=== PATIENT | male | born 1950 | race Caucasian/White ===

== ENCOUNTER → 2017-01-23 | Outpatient (CLI) | payer OTHER ==
--- NOTE | 2017-01-23 23:18 | MR ---
EXAMINATION TYPE: MR lumbar spine wo con DATE OF EXAM: 01/23/2017 COMPARISON: 01/06/2016 HISTORY: Back pain TECHNIQUE: Multiplanar, multisequence images of the lumbar spine were acquired. Vertebra have fairly normal alignment. There is narrowing and decreased signal in the disks throughou t the lumbar spine. There is mild to moderate posterior disc herniation at L5-S1 into the spinal blas l. There is developmentally adequate canal and no significant spinal stenosis. There is hypertrophic facet arthropathy with bilateral neural foraminal stenosis present from L3 to S1. This is more severe at L5-S1. There is no compression fracture. Sacroiliac joints are intact. There is no lumbar paraspi nal mass. I see no focal bone destruction. There is small posterior disc bulging at L1-2 L3-4 without impingement on the spinal canal. Sacroiliac joints appear normal. IMPRESSION: Mild posterior L5-S1 disc herniation without change compared to last exam. No spinal stenosis. Mild m ultilevel spondylosis. No fracture. Multilevel neural foraminal stenosis due to facet arthropathy and disc space narrowing. This is simil ar to old exam. No evidence of any significant spinal stenosis.
== END ==
LOC: RADMRIMAIN 16:02
PROVIDERS: ATTEND Family Medicine
DX: M48.06 Spinal stenosis, lumbar region (principal); M99.73 Connective tissue and disc stenosis of intervertebral foramina of lumbar region; M51.27 Other intervertebral disc displacement, lumbosacral region; M47.816 Spondylosis without myelopathy or radiculopathy, lumbar region; M46.86 Other specified inflammatory spondylopathies, lumbar region
CPT/HCPCS: 72148

== ENCOUNTER → 2017-07-05 | Outpatient (CLI) | payer MEDICARE ==
--- NOTE | 2017-07-05 17:22 | MR ---
EXAMINATION TYPE: MR lumbar spine wo/w con DATE OF EXAM: 07/05/2017 COMPARISON: 01/23/2017 HISTORY: spondylosis with myelopathy, lumbar CONTRAST: 9 mL intravenous Gadavist. TECHNIQUE: Multiplanar, multisequence images of the lumbar spine were acquired. FINDINGS: Cord terminates at the L1 level. Large cysts present on the inferior medial left kidney. L5-S1: There is increased signal on T2-weighted sequences within the posterior disc space at L5-S1 co mpatible with a small annular tear. Right paracentral disc bulge has moderate anterior thecal sac com pression. Granulation tissue is present through the right laminectomy. Granulation tissue or disc bul ging into the right foramen is contributing to severe right foraminal stenosis. L4-L5: Mild disc bulge has mild anterior thecal sac compression. No AP spinal canal stenosis present. Foraminal stenosis is present to a moderate degree bilaterally. Facet hypertrophy ligamentum flavum laxity is present. L3-L4: Minimal disc bulge has anterior thecal sac contact. No spinal canal stenosis is present. Facet hypertrophy is present. Mild posterior lateral thecal sac compression is present. L2-L3: No significant disc bulge or disc herniation. No spinal canal stenosis. No foraminal stenosi s. Neural foramen are patent.. L1-L2: No significant disc bulge or disc herniation. No spinal canal stenosis. No foraminal stenosi s. Neural foramen are patent.. T12-L1: No significant disc bulge or disc herniation. No spinal canal stenosis. No foraminal stenos is. Neural foramen are patent.. No abnormal enhancement. Postsurgical changes are in the interval finding from 01/17/2017. Severe righ t foraminal stenosis remains present. IMPRESSION: 1. Right hemilaminectomy with granulation tissue. This extends to and may displace the right S1 nerve root. Severe right foraminal stenosis is present. Correlate with radicular symptoms. 2. Annular tear L5-S1 with right paracentral disc bulge. 3. Mild disc bulging L4-5 and minimal disc bulge at L3-4.
== END | disposition home or self-care (01) ==
LOC: RADMRIMAIN 12:08
PROVIDERS: ATTEND Family Medicine
DX: M99.73 Connective tissue and disc stenosis of intervertebral foramina of lumbar region (principal); M51.27 Other intervertebral disc displacement, lumbosacral region; M51.37 Other intervertebral disc degeneration, lumbosacral region
CPT/HCPCS: 82565; 72158; 36415; A9581

== ENCOUNTER → 2019-09-09 | Outpatient (CLI) | payer MEDICARE, OTHER ==
--- NOTE | 2019-09-12 10:47 | MR ---
MR left hip HISTORY: Left hip pain Multiplanar multisequence imaging obtained through the pelvis with small [id number] images through the left hip Correlation to plain film dated 06/17/2019 Some marginal spurring is present within the femoral head. There is abnormal increased signal involvi ng the acetabular labrum, coronal image #13 small [id number] images. Abnormal increased signal is present along the distribution of the gluteus minimus tendon, some increased intrinsic signal is pres ent on coronal image #10. No zofia tear is evident. There is no sizable joint effusion. Subchondral g eode formation suspected on sagittal image #25 of the small [id number] images, coronal image #10 w ith focal increased signal seen on T2-weighted sequences. There is some mild chondromalacia present, grade 2 suspected. There is no free fluid within the pelvis. Prostate is mildly enlarged. Paraspinal musculature superfi cial to the sacrum on the right shows mild increased signal in T1 and T2-weighted sequences, there ma y be some muscle atrophy. No pelvic adenopathy. IMPRESSION: Gluteus medius tendon shows probable partial tear, tendinosis or strain. Osteoarthritis. Small labral tear is suggested on this noncontrast exam.
== END | disposition home or self-care (01) ==
LOC: RADMRIMAIN 11:35
PROVIDERS: ATTEND Family Medicine
DX: M16.12 Unilateral primary osteoarthritis, left hip (principal)

== ENCOUNTER 2019-11-04 02:21 | Emergency (ER) | payer MEDICARE, OTHER ==
[2019-11-04 02:30] VITALS: RESP 18; TEMP 98.4
[2019-11-04] MEDS ORDERED: SODIUM CHLORIDE 0.9% 500 ML 500 ML IV STA (02:42)
--- NOTE | 2019-11-04 02:48 | ED ---
Weakness HPI - General Chief complaint: Weakness Stated complaint: weakness Time Seen by Provider: 11/04/19 02:34 Source: patient, EMS Mode of arrival: EMS Limitations: no limitations - History of Present Illness Initial comments: This patient is a 69-year-old man who presents to be evaluated after he developed an episode of generalized weakness and diaphoresis. The patient states that he had been in her usual state of health until just after midnight. He states that at that time he felt like he had to have a bowel movement. He thought that he had eaten something that may not agree with him. He states that as she was in the process of having bowel movement he became very sweaty, felt shaky and weak. He states that he then went and sat on the bed and then symptoms worsen then he went to lie on the floor. EMS was called and they found that his blood pressure was low. The patient denied having chest pain, palpitations, diaphoresis, abdominal pain, though there was some bilateral lower abdominal cramping. He did not note any blood or dark tarry stool. No vomiting. The patient states that the symptoms have nearly entirely resolved. He is still having some intermittent lower abdominal cramping. MD Complaint: generalized weakness Onset/Timin -: hour(s) Location: generalized Consistency: now resolved Improves with: none Worsens with: none Associated Symptoms: diaphoresis - Related Data Allergies Allergy/AdvReac Type Severity Reaction Status Date / Time No Known Allergies Allergy Verified 11/04/19 02:30 Review of Systems ROS Statement: Those systems with pertinent positive or pertinent negative responses have been documented in the HPI. ROS Other: All systems not noted in ROS Statement are negative. Constitutional: Reports: chills, weakness. Denies: fever Respiratory: Denies: cough, dyspnea Cardiovascular: Denies: chest pain, palpitations, orthopnea, edema, syncope Gastrointestinal: Reports: as per HPI, diarrhea. Denies: abdominal pain, nausea, vomiting, constipation, melena, hematochezia Genitourinary: Denies: dysuria, hematuria Musculoskeletal: Denies: back pain Skin: Denies: rash Neurological: Denies: headache, weakness, numbness Past Medical History Past Medical History: Chest Pain / Angina, Hypertension History of Any Multi-Drug Resistant Organisms: None Reported Past Surgical History: Coronary Bypass/CABG, Heart Catheterization With Stent Additional Past Surgical History / Comment(s): 5 bypass in 2013, back surgery Past Psychological History: No Psychological Hx Reported Smoking Status: Never smoker Past Alcohol Use History: None Reported Past Drug Use History: None Reported General Exam Limitations: no limitations General appearance: alert, in no apparent distress Head exam: Present: atraumatic, normocephalic Eye exam: Present: normal appearance. Absent: scleral icterus, conjunctival injection Neck exam: Present: normal inspection Respiratory exam: Present: normal lung sounds bilaterally. Absent: respiratory distress, wheezes, rales, rhonchi, stridor Cardiovascular Exam: Present: regular rate, normal rhythm, normal heart sounds. Absent: systolic murmur, diastolic murmur, rubs, gallop GI/Abdominal exam: Present: soft. Absent: distended, tenderness, guarding, rebound, rigid, mass, pulsatile mass, hernia Extremities exam: Present: normal inspection, normal capillary refill. Absent: pedal edema, calf tenderness Back exam: Present: normal inspection. Absent: CVA tenderness (R), CVA tenderness (L) Neurological exam: Present: alert Skin exam: Present: warm, dry, intact, normal color. Absent: rash Course Vital Signs 11/04/19 11/04/19 02:22 04:16 Temperature 98.4 F Pulse Rate 79 70 Respiratory 18 18 Rate Blood Pressure 137/73 121/79 O2 Sat by Pulse 98 98 Oximetry EKG Findings - EKG Results: EKG: interpreted by ERMD, sinus rhythm, normal axis, normal QRS - Blocks, [place], Hypertrophy, ST Abn: AV and intraventricular conduction: 1 AV block Repolarization changes or abnormalities: nonspecific abnormality, ST segment, and/or T wave Medical Decision Making - Medical Decision Making This patient is 69-year-old man presenting with what sounds like a near syncopal episode associated with a bowel movement this morning. Given his cardiac history did recommend that the patient stay for telemetry monitoring and serial cardiac enzymes. Discussed the possibility of transient arrhythmia amongst other etiologies. The patient states that all of his symptoms have resolved. He would like to go home. He understands there is risk of missing serious etiology by leaving now. He states he'll return immediately should any symptoms recur or new symptoms develop. - Lab Data Result diagrams: 11/04/19 02:36 11/04/19 02:36 Lab Results 11/04/19 11/04/19 11/04/19 Range/Units 02:36 02:36 02:36 WBC 8.8 (3.8-10.6) k/uL RBC 4.23 L (4.30-5.90) m/uL Hgb 11.8 L (13.0-17.5) gm/dL Hct 34.9 L (39.0-53.0) % MCV 82.5 (80.0-100.0) fL MCH 27.8 (25.0-35.0) pg MCHC 33.7 (31.0-37.0) g/dL RDW 13.5 (11.5-15.5) % Plt Count 211 (150-450) k/uL Neutrophils % 58 % Lymphocytes % 30 % Monocytes % 6 % Eosinophils % 2 % Basophils % 1 % Neutrophils # 5.1 (1.3-7.7) k/uL Lymphocytes # 2.7 (1.0-4.8) k/uL Monocytes # 0.5 (0-1.0) k/uL Eosinophils # 0.2 (0-0.7) k/uL Basophils # 0.1 (0-0.2) k/uL PT 10.3 (9.0-12.0) sec INR 1.0 (<1.2) APTT 23.2 (22.0-30.0) sec Sodium 133 L (137-145) mmol/L Potassium 3.8 (3.5-5.1) mmol/L Chloride 100 (98-107) mmol/L Carbon Dioxide 22 (22-30) mmol/L Anion Gap 11 mmol/L BUN 22 H (9-20) mg/dL Creatinine 0.94 (0.66-1.25) mg/dL Est GFR (CKD-EPI)AfAm >90 (>60 ml/min/1.73 sqM) Est GFR (CKD-EPI)NonAf 84 (>60 ml/min/1.73 sqM) Glucose 112 H (74-99) mg/dL Plasma Lactic Acid [place] (0.7-2.0) mmol/L Calcium 8.9 (8.4-10.2) mg/dL Total Bilirubin 0.4 (0.2-1.3) mg/dL AST 27 (17-59) U/L ALT 20 (4-49) U/L Alkaline Phosphatase 44 (38-126) U/L Troponin I (0.000-0.034) ng/mL Total Protein 6.8 (6.3-8.2) g/dL Albumin 4.1 (3.5-5.0) g/dL 11/04/19 11/04/19 Range/Units 02:36 02:36 WBC (3.8-10.6) k/uL RBC (4.30-5.90) m/uL Hgb (13.0-17.5) gm/dL Hct (39.0-53.0) % MCV (80.0-100.0) fL MCH (25.0-35.0) pg MCHC (31.0-37.0) g/dL RDW (11.5-15.5) % Plt Count (150-450) k/uL Neutrophils % % Lymphocytes % % Monocytes % % Eosinophils % % Basophils % % Neutrophils # (1.3-7.7) k/uL Lymphocytes # (1.0-4.8) k/uL Monocytes # (0-1.0) k/uL Eosinophils # (0-0.7) k/uL Basophils # (0-0.2) k/uL PT (9.0-12.0) sec INR (<1.2) APTT (22.0-30.0) sec Sodium (137-145) mmol/L Potassium (3.5-5.1) mmol/L Chloride (98-107) mmol/L Carbon Dioxide (22-30) mmol/L Anion Gap mmol/L BUN (9-20) mg/dL Creatinine (0.66-1.25) mg/dL Est GFR (CKD-EPI)AfAm (>60 ml/min/1.73 sqM) Est GFR (CKD-EPI)NonAf (>60 ml/min/1.73 sqM) Glucose (74-99) mg/dL Plasma Lactic Acid [place] 1.7 (0.7-2.0) mmol/L Calcium (8.4-10.2) mg/dL Total Bilirubin (0.2-1.3) mg/dL AST (17-59) U/L ALT (4-49) U/L Alkaline Phosphatase (38-126) U/L Troponin I <0.012 (0.000-0.034) ng/mL Total Protein (6.3-8.2) g/dL Albumin (3.5-5.0) g/dL Disposition Clinical Impression: Near syncope Disposition: HOME SELF-CARE Condition: Undetermined Is patient prescribed a controlled substance at d/c from ED?: No Referrals: Ag Pritchett MD [Primary Care Provider] - 1-2 days
[2019-11-04 03:02] LABS: Basophils # (A) 0.1 k/uL (0-0.2); Basophils % (A) 1 %; Eosinophils # (A) 0.2 k/uL (0-0.7); Eosinophils % (A) 2 %; HCT 34.9 % (39.0-53.0); HGB 11.8 gm/dL (13.0-17.5); Lymphocytes # (A) 2.7 k/uL (1.0-4.8); Lymphocytes % (A) 30 %; MCH 27.8 pg (25.0-35.0); MCHC 33.7 g/dL (31.0-37.0); MCV 82.5 fL (80.0-100.0); Mean Platelet Volume 7.2; Monocytes # (A) 0.5 k/uL (0-1.0); Monocytes % (A) 6 %; Neutrophils # (A) 5.1 k/uL (1.3-7.7); Neutrophils % (A) 58 %; Platelet Count 211 k/uL (150-450); RBC 4.23 m/uL (4.30-5.90); RDW 13.5 % (11.5-15.5); WBC 8.8 k/uL (3.8-10.6)
--- NOTE | 2019-11-04 03:04 | XR ---
EXAMINATION TYPE: XR chest 1V portable DATE OF EXAM: 11/04/2019 COMPARISON: 05/06/2013 HISTORY: Diaphoresis TECHNIQUE: FINDINGS: There is no heart failure nor confluent pneumonic infiltrate. There are sternal wires. Ther e are chest leads. Costophrenic angles are clear. IMPRESSION: No active cardiopulmonary disease. There is clearing of the infiltrate and atelectasis in both lower lobes compared to old exam.
[2019-11-04 03:06] LABS: Partial Thromboplastin Time 23.2 sec (22.0-30.0); Prothrombin Time 10.3 sec (9.0-12.0)
[2019-11-04 03:11] LABS: ALT 20 U/L (4-49); AST 27 U/L (17-59); African American GFR (CKD) >90 (>60 ml/min/1.73 sqM); Albumin 4.1 g/dL (3.5-5.0); Alkaline Phosphatase 44 U/L (38-126); Anion Gap 11 mmol/L; Blood Urea Nitrogen 22 mg/dL (9-20); Calcium 8.9 mg/dL (8.4-10.2); Carbon Dioxide 22 mmol/L (22-30); Chloride 100 mmol/L (98-107); Glucose 112 mg/dL (74-99); Non-African American GFR(CKD) 84 (>60 ml/min/1.73 sqM); Potassium 3.8 mmol/L (3.5-5.1); Sodium 133 mmol/L (137-145); Total Bilirubin 0.4 mg/dL (0.2-1.3); Total Protein 6.8 g/dL (6.3-8.2)
[2019-11-04 04:18] VITALS: BP 121/79; PULSE 70
== END 2019-11-04 04:49 | disposition home or self-care (01) ==
LOC: EC 02:21
DX: R55 Syncope and collapse (principal); R53.1 Weakness; R10.30 Lower abdominal pain, unspecified; Z95.5 Presence of coronary angioplasty implant and graft; Z95.1 Presence of aortocoronary bypass graft
CPT/HCPCS: 36415; 71045; 80053; 83605; 84484; 85025; 85610; 85730; 93005; 96360; 99285

== ENCOUNTER → 2020-01-02 | Outpatient (CLI) | payer MEDICARE, OTHER | END | disposition home or self-care (01) | LOC: RADMRIMAIN 13:21 | PROVIDERS: ATTEND Orthopaedic Surgery | DX: Z53.9 Procedure and treatment not carried out, unspecified reason (principal) ==

== ENCOUNTER → 2020-01-09 | Outpatient (CLI) | payer MEDICARE, OTHER ==
--- NOTE | 2020-01-10 03:04 | MR ---
EXAMINATION TYPE: MR shoulder RT wo con DATE OF EXAM: 01/09/2020 COMPARISON: None HISTORY: Right shoulder pain Multiplanar multiecho imaging of the right shoulder was performed without contrast. There is fluid around the biceps tendon. Subscapularis tendon is intact. The glenoid ekaterina appear int act. There is hypertrophic moderate spurring at the AC joint with impingement on the supraspinatus tendon. The supraspinatus tendon appears intact. There is no retraction. The humeral head is intact. I see n o bony destructive process. IMPRESSION: No evidence of rotator cuff tear. There is significant hypertrophic spur formation at the AC joint wi th resultant impingement on the supraspinatus tendon and muscle.
== END | disposition home or self-care (01) ==
LOC: RADMRIMAIN 18:39
PROVIDERS: ATTEND Orthopaedic Surgery
DX: M25.711 Osteophyte, right shoulder (principal)

== ENCOUNTER → 2020-02-18 | Outpatient (CLI) | payer MEDICARE, OTHER ==
[2020-02-18 11:25] LABS: Basophils # (A) 0.1 k/uL (0-0.2); Basophils % (A) 1 %; Eosinophils # (A) 0.2 k/uL (0-0.7); Eosinophils % (A) 2 %; HCT 37.9 % (39.0-53.0); Hypochromasia Slight; Lymphocytes # (A) 2.3 k/uL (1.0-4.8); Lymphocytes % (A) 31 %; MCH 26.2 pg (25.0-35.0); MCHC 31.6 g/dL (31.0-37.0); MCV 82.9 fL (80.0-100.0); Mean Platelet Volume 7.1; Monocytes # (A) 0.5 k/uL (0-1.0); Monocytes % (A) 6 %; Neutrophils # (A) 4.4 k/uL (1.3-7.7); Neutrophils % (A) 58 %; Platelet Count 233 k/uL (150-450); RBC 4.58 m/uL (4.30-5.90); RDW 14.6 % (11.5-15.5); WBC 7.6 k/uL (3.8-10.6)
[2020-02-18 11:32] LABS: Potassium 4.5 mmol/L (3.5-5.1)
== END | disposition home or self-care (01) ==
LOC: LABPAT 09:58
PROVIDERS: ATTEND Orthopaedic Surgery
DX: Z01.812 Encounter for preprocedural laboratory examination (principal); M75.41 Impingement syndrome of right shoulder
CPT/HCPCS: 36415; 80051; 85025; 93005

== ENCOUNTER 2020-03-11 07:17 | Day surgery (SDC) | payer MEDICARE, OTHER ==
[2020-03-09 16:01] VITALS: BMI 29.2
--- NOTE | 2020-03-10 15:17 | HP ---
HISTORY AND PHYSICAL DATE OF SURGERY: 03/11/2020 Tony Yo is a 69-year-old patient seen with progressive right shoulder pain. We discussed options for treatment. He elected to proceed with arthroscopy. Consent regarding the procedure was obtained. PAST MEDICAL HISTORY: Hyperlipidemia, hypertension, cardiovascular disease. PAST SURGICAL HISTORY: Left knee arthroscopy, cardiac catheterization, cardiac bypass surgery. DAILY MEDICATIONS: Aspirin, Lipitor, lisinopril. ALLERGIES: None. SOCIAL HISTORY: Denies current tobacco use. PHYSICAL EVALUATION OF THE RIGHT SHOULDER: Flexion is 130, abduction is 120, external rotation is 45. Tenderness along the anterolateral acromion rotator cuff insertion site. Impingement sign is positive at 90 degrees. Drop-arm sign is positive. Distal neurovascular exam is intact. RADIOGRAPHS: Right shoulder type 2 anterior acromion, severe acromioclavicular osteoarthritis with change of tuberosity. Right shoulder MRI, impingement with acromioclavicular osteoarthritis. IMPRESSION: 1. Right shoulder impingement with possible rotator cuff tear. 2. Right shoulder acromioclavicular joint osteoarthritis. 3. Hypertension. 4. Hyperlipidemia. PLAN: Right shoulder arthroscopy, subacromial decompression, arthroscopic rotator cuff repair, Tegan procedure and debridement. MMODL / IJN: [id number] /
[~2020-03-11 07:17] MED LIST: DEXAMETHASONE SOD PHOSPHATE 4 MG/ML 1 ML VIAL IV ONE; LACTATED RINGERS 1,000 ML IV SCH; ONDANSETRON 4 MG/2 ML VIAL IVP ONE
[2020-03-11] MEDS: MIDAZOLAM 2 MG/2 ML VIAL IV PRN ×2 (07:55→11:13)
[2020-03-11] MEDS ORDERED: fentaNYL (PF) 50 MCG/ML 2 ML AMP IVP ONE (07:57)
--- NOTE | 2020-03-11 08:14 | P.ANPRN ---
Procedure Note - Anesthesia - Nerve Block Performed Right Interscalene Single Time Out Performed: Yes Date of Procedure: 03/11/20 Procedure Start Time: 07:55 Procedure Stop Time: 08:05 Location of Patient: PreOp Indication: Requested by Surgeon Specifically requested for management of pain by DrHeather: Oleg Roper Sedation Type: Sedate with meaningful contact maintained Preparation: Sterile Prep Position: Supine Needle Types: Pajunk Needle Gauge: 20 Ultrasound used to visualize needle placement: Yes Ultrasound used to observe medication spread: Yes Injectate: 0.5% Ropivacaine (see comment for volume) (25 ml plus dexamethason) Blood Aspirated: No Pain Paresthesia on Injection Noted: No Resistance on Injection: Normal Image Stored and Saved: Yes Events: Uneventful and Well Tolerated (dexamethason 4 mg added to ropivacaine 0.5 % 25 ml)
[2020-03-11] MEDS ORDERED: fentaNYL (PF) 50 MCG/ML 2 ML AMP ONE (09:09)
[2020-03-11] MEDS ORDERED: MIDAZOLAM 2 MG/2 ML VIAL ONE (09:09)
[2020-03-11] MEDS ORDERED: ROPIVACAINE 5 MG/ML 30 ML VIAL ONE (09:09)
[2020-03-11] MEDS ORDERED: LIDOCAINE 1% INJ 10MG/ML (20 ML MDV) ONE (09:09)
[2020-03-11] MEDS ORDERED: PROPOFOL 10 MG/ML 20 ML VIAL IV ONE (09:09)
[2020-03-11] MEDS ORDERED: SUCCINYLCHOLINE CHLORIDE 100 MG/5 ML SYR IV ONE (09:09)
[2020-03-11] MEDS: HYDROmorphone 0.5 MG/0.5 ML SYRINGE IVP PRN ×4 (10:38→10:55)
[2020-03-11 10:45] VITALS: RESP 16; TEMP 97
--- NOTE | 2020-03-11 10:45 | P.OP ---
Date of Procedure: 03/11/20 Preoperative Diagnosis: Right shoulder impingement Postoperative Diagnosis: 1. Right shoulder rotator cuff tear 2. Right shoulder impingement 3. Right shoulder acromioclavicular joint osteoarthritis 4. Right shoulder partial long head biceps tendon tear 5. 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 Right shoulder arthroscopic rotator cuff repair 2. Right shoulder arthroscopic subacromial decompression 3. Right shoulder arthroscopic Tegan procedure 4. Right shoulder arthroscopic biceps tenotomy 5. Right shoulder arthroscopic chondroplasty humeral head Implants: 14.75 Arthrex swivel lock anchor Anesthesia: GETA, regional (Interscalene block) Surgeon: Oleg Roper [employer] #1: Brent Bradshaw Estimated Blood Loss (ml): 8 Pathology: none sent Condition: stable Disposition: PACU Indications for Procedure: 69-year-old gentleman seen with progressive right shoulder pain. After treatment options were discussed, he elected to proceed with arthroscopy. Operative Findings: See description of procedure Description of Procedure: Patient underwent an interscalene block by department of anesthesia. The patient was then taken to the operative suite. The patient underwent a general anesthetic by the department of anesthesia. The patient was placed into a lateral position and secured. There was appropriate padding of the bony prominence. Right shoulder was then prepped and draped in normal sterile orthopedic fashion. We placed the extremity in 10 pounds of longitudinal traction. A posterior incision was now made for a posterior working portal site. The trocar and cannula were inserted into the glenohumeral joint. Arthroscopy was initiated. Spinal needle was now inserted anteriorly, to ascertain the a nterior working portal site. An incision was now made in that area, a trocar was inserted followed by a probe. There was area of grade 4 chondromalacia measuring about 1.5 centimeters central portion humeral head with some peripheral osteochondral tears present. There was some partial tearing and hyperemia long head biceps tendon. The labrum was probed and found to be stable. I performed an arthroscopic biceps tenotomy. I performed a chondroplasty of the humeral head. I reintroduced the probe and probe the labrum, it was stable. Instruments now removed from the glenohumeral joint. Utilizing the posterior working portal site, the trocar and cannula were inserted into the subacromial space. Arthroscopy initiated. I made an incision 2 fingerbreadths lateral to the acromion. I introduced my trocar followed by my ArthroCare ablator. I now began ablating thick subacromial bursal tissue, which exposed the undersurface of the anterior acromion. There was diminished subacromial space. There was a very prominent anterior acromion. A motorized bur was introduced and a subacromial decompression was performed. I also excised some osteophytes off the inferior aspect of the distal clavicle. The AC joint was visualized and noted to be fairly arthritic. The motorized bur was introduced in the anterior portal site and a Tegan procedure was performed without difficulty, decompressing the AC joint nicely. I turned my attention to the rotator cuff. There was a 11.5 cm rotator cuff tear. I debrided the margins getting down to stable tendon tissue. I abraded the footprint with a mo torized bur. I passed 2 everted mattress sutures through good bites of rotator cuff tendon. I punched a hole in area the footprint for insertion of anchor. I passed all 4 limbs of suture through the eyelet of a 4.75 swivel lock anchor. I introduced the eyelet into my pre-punch hole. Martín GRANGER tensioned all 4 limbs of suture and deployed the anchor with good fixation noted. All residual suture limbs were now clipped. We had good compression of the tendon along the entire footprint. I injected 1 mL Renyte intra-articular. Instruments now removed from the portal sites. All portal sites were approximated with nylon suture. Sterile dressings were applied followed by a shoulder sling. Brent GRANGER assisted in this complex case. The patient was awakened, transferred to a bed, and taken to recovery in stable condition.
[2020-03-11] MEDS ORDERED: KETOROLAC 15 MG/ML 1 ML VIAL IVP ONE (10:50)
[2020-03-11] MEDS ORDERED: SODIUM CHLORIDE 0.9% 1,000 ML IV ONE (11:25)
[2020-03-11 11:51] VITALS: BP 122/69; PULSE 74
== END 2020-03-11 12:30 | disposition home or self-care (01) ==
LOC: OR 07:17
PROVIDERS: ATTEND Orthopaedic Surgery
DX: M75.101 Unspecified rotator cuff tear or rupture of right shoulder, not specified as traumatic (principal); M25.811 Other specified joint disorders, right shoulder; M19.011 Primary osteoarthritis, right shoulder; M66.821 Spontaneous rupture of other tendons, right upper arm; M94.211 Chondromalacia, right shoulder; M25.711 Osteophyte, right shoulder; M25.511 Pain in right shoulder; E78.5 Hyperlipidemia, unspecified; I25.10 Atherosclerotic heart disease of native coronary artery without angina pectoris; I11.9 Hypertensive heart disease without heart failure; Z95.1 Presence of aortocoronary bypass graft; Z98.890 Other specified postprocedural states; Z79.82 Long term (current) use of aspirin; Z79.899 Other long term (current) drug therapy
CPT/HCPCS: 64415; 76942; 29826; 29827; 29824; C1713; Q4212; J2250; J1100; J0690; J2405; J2001; J3010; J2795; J1885; J0330; J2704; J1170

== ENCOUNTER → 2021-07-01 | Outpatient (CLI) | payer MEDICARE, OTHER | END | disposition home or self-care (01) | LOC: LABWHC1 09:26 | PROVIDERS: ATTEND Otolaryngology Otolaryngology/Facial Plastic Surgery | DX: H61.002 Unspecified perichondritis of left external ear (principal) | CPT/HCPCS: 36415; 85652; 86038; 86141 ==

== ENCOUNTER 2021-08-14 21:57 | Emergency (ER) | payer MEDICARE, OTHER ==
[2021-08-14 23:44] VITALS: TEMP 98
[2021-08-15] MEDS ORDERED: MORPHINE SULFATE 4 MG/ML SYRINGE IVP STA ×2 (00:08→01:27)
[2021-08-15 00:27] LABS: Basophils # (A) 0.1 k/uL (0-0.2); Basophils % (A) 1 %; Eosinophils # (A) 0.2 k/uL (0-0.7); Eosinophils % (A) 2 %; HCT 39.5 % (39.0-53.0); HGB 13.3 gm/dL (13.0-17.5); Lymphocytes # (A) 3.4 k/uL (1.0-4.8); Lymphocytes % (A) 42 %; MCH 28.5 pg (25.0-35.0); MCHC 33.7 g/dL (31.0-37.0); MCV 84.6 fL (80.0-100.0); Mean Platelet Volume 7.3; Monocytes # (A) 0.5 k/uL (0-1.0); Monocytes % (A) 7 %; Neutrophils # (A) 3.7 k/uL (1.3-7.7); Neutrophils % (A) 45 %; Platelet Count 235 k/uL (150-450); RBC 4.67 m/uL (4.30-5.90); RDW 14.5 % (11.5-15.5); WBC 8.2 k/uL (3.8-10.6)
[2021-08-15 00:46] LABS: Potassium 3.8 mmol/L (3.5-5.1)
[2021-08-15 00:47] LABS: ALT 34 U/L (4-49); AST 36 U/L (17-59); African American GFR (CKD) >90 (>60 ml/min/1.73 sqM); Albumin 4.4 g/dL (3.5-5.0); Alkaline Phosphatase 47 U/L (38-126); Amylase 65 U/L (30-110); Anion Gap 10 mmol/L; Blood Urea Nitrogen 19 mg/dL (9-20); Calcium 8.6 mg/dL (8.4-10.2); Carbon Dioxide 25 mmol/L (22-30); Chloride 104 mmol/L (98-107); Glucose 104 mg/dL (74-99); Magnesium 2.1 mg/dL (1.6-2.3); Non-African American GFR(CKD) >90 (>60 ml/min/1.73 sqM); Sodium 139 mmol/L (137-145); Total Bilirubin 0.6 mg/dL (0.2-1.3); Total Protein 7.5 g/dL (6.3-8.2)
[2021-08-15 00:58] LABS: Partial Thromboplastin Time 25.5 sec (22.0-30.0); Prothrombin Time 10.5 sec (9.0-12.0)
[2021-08-15 01:22] VITALS: RESP 16
--- NOTE | 2021-08-15 01:31 | ED ---
General Adult HPI - General Chief complaint: Neck Pain/Injury Stated complaint: Oral pain Source: patient Mode of arrival: ambulatory - History of Present Illness Initial comments: 71-year-old male presents emergency room with reported left maxillary and left mandibular jaw pain that radiates into his left neck. Patient states that he has dealt with the pain for an extended period of time. He was seen by ENT and diagnosed with an ear infection. He was placed on antibiotics and an antibiotic cream. States that his pain improved. Around 2 PM today the patient began having recurrence of his pain. States that the areas are very tender to touch. Patient has pain with opening and closing his jaw. He denies any fevers. No palpable masses. He does have a significant cardiac history however denies any chest pain or shortness of breath. Denies any dental pain. No nasal congestion. Denies any hearing changes. No other alleviating, precipitating or modifying factors - Related Data Home Medications Medication Instructions Recorded Confirmed Aspirin [Adult Low Dose Aspirin EC] 81 mg PO DAILY 03/09/20 03/09/20 Atorvastatin [Lipitor] 40 mg PO HS 03/09/20 03/09/20 Lisinopril-Hctz 20-25 mg 1 tab PO DAILY 03/09/20 03/11/20 [Zestoretic 20-25] lisinopriL 20 mg PO HS 03/09/20 03/09/20 Previous Rx's Medication Instructions Recorded Hydrocodone/Acetaminophen [[place] 1 each PO Q6HR PRN #28 tab 03/11/20 5-325] HYDROcodone/APAP 7.5-325MG [[place] 1 tab PO Q4HR PRN 3 Days #18 tab 08/15/21 7.5-325] Allergies Allergy/AdvReac Type Severity Reaction Status Date / Time No Known Allergies Allergy Verified 08/14/21 23:44 Review of Systems ROS Statement: Those systems with pertinent positive or pertinent negative responses have been documented in the HPI. ROS Other: All systems not noted in ROS Statement are negative. Past Medical History Past Medical History: Chest Pain / Angina, Hypertension, Myocardial Infarction ([place]) History of Any Multi-Drug Resistant Organisms: None Reported Past Surgical History: Coronary Bypass/CABG, Heart Catheterization With Stent Additional Past Surgical History / Comment(s): 5 bypass in 2013, back surgery Past Psychological History: No Psychological Hx Reported Smoking Status: Never smoker Past Alcohol Use History: None Reported Past Drug Use History: None Reported Course Vital Signs 08/14/21 08/15/21 08/15/21 23:39 00:44 01:20 Temperature 98 F Pulse Rate 77 80 68 Respiratory 19 18 16 Rate Blood Pressure 124/70 141/80 104/81 O2 Sat by Pulse 96 93 L 93 L Oximetry 08/15/21 01:42 Temperature Pulse Rate 74 Respiratory 16 Rate Blood Pressure 130/80 O2 Sat by Pulse 93 L Oximetry EKG Findings - EKG Comments: EKG Findings:: EKG demonstrates sinus rhythm with a rate of 73. CT interval 18 5. QRS 89. QTC of 423. No acute ST segment elevations or depressions Medical Decision Making - Medical Decision Making Upon arrival patient was placed in room 3. A thorough history and physical exam was performed. Cardiac workup is performed due to the patient's history. Results are discussed patient. He was given morphine for pain control and does have improvement in his symptoms. I discussed diagnosis, treatment options. Recommend admission for continued cardiac workup however the patient refused as he states the duration of his symptoms has been extended. Patient will like to follow up his primary care physician and ENT. He is instructed to return for any new or worsening symptoms. Patient was discharged home in stable condition - Lab Data Result diagrams: 08/15/21 00:00 08/15/21 00:00 Lab Results 08/15/21 08/15/21 08/15/21 Range/Units 00:00 00:00 00:00 WBC 8.2 (3.8-10.6) k/uL RBC 4.67 (4.30-5.90) m/uL Hgb 13.3 (13.0-17.5) gm/dL Hct 39.5 (39.0-53.0) % MCV 84.6 (80.0-100.0) fL MCH 28.5 (25.0-35.0) pg MCHC 33.7 (31.0-37.0) g/dL RDW 14.5 (11.5-15.5) % Plt Count 235 (150-450) k/uL MPV 7.3 Neutrophils % 45 % Lymphocytes % 42 % Monocytes % 7 % Eosinophils % 2 % Basophils % 1 % Neutrophils # 3.7 (1.3-7.7) k/uL Lymphocytes # 3.4 (1.0-4.8) k/uL Monocytes # 0.5 (0-1.0) k/uL Eosinophils # 0.2 (0-0.7) k/uL Basophils # 0.1 (0-0.2) k/uL PT (9.0-12.0) sec INR (<1.2) APTT (22.0-30.0) sec Sodium 139 (137-145) mmol/L Potassium 3.8 (3.5-5.1) mmol/L Chloride 104 (98-107) mmol/L Carbon Dioxide 25 (22-30) mmol/L Anion Gap 10 mmol/L BUN 19 (9-20) mg/dL Creatinine 0.78 (0.66-1.25) mg/dL Est GFR (CKD-EPI)AfAm >90 (>60 ml/min/1.73 sqM) Est GFR (CKD-EPI)NonAf >90 (>60 ml/min/1.73 sqM) Glucose 104 H (74-99) mg/dL Calcium 8.6 (8.4-10.2) mg/dL Magnesium 2.1 (1.6-2.3) mg/dL Total Bilirubin 0.6 (0.2-1.3) mg/dL AST 36 (17-59) U/L ALT 34 (4-49) U/L Alkaline Phosphatase 47 (38-126) U/L Troponin I <0.012 (0.000-0.034) ng/mL Total Protein 7.5 (6.3-8.2) g/dL Albumin 4.4 (3.5-5.0) g/dL Amylase 65 (30-110) U/L 08/15/21 Range/Units 00:42 WBC (3.8-10.6) k/uL RBC (4.30-5.90) m/uL Hgb (13.0-17.5) gm/dL Hct (39.0-53.0) % MCV (80.0-100.0) fL MCH (25.0-35.0) pg MCHC (31.0-37.0) g/dL RDW (11.5-15.5) % Plt Count (150-450) k/uL MPV Neutrophils % % Lymphocytes % % Monocytes % % Eosinophils % % Basophils % % Neutrophils # (1.3-7.7) k/uL Lymphocytes # (1.0-4.8) k/uL Monocytes # (0-1.0) k/uL Eosinophils # (0-0.7) k/uL Basophils # (0-0.2) k/uL PT 10.5 (9.0-12.0) sec INR 1.0 (<1.2) APTT 25.5 (22.0-30.0) sec Sodium (137-145) mmol/L Potassium (3.5-5.1) mmol/L Chloride (98-107) mmol/L Carbon Dioxide (22-30) mmol/L Anion Gap mmol/L BUN (9-20) mg/dL Creatinine (0.66-1.25) mg/dL Est GFR (CKD-EPI)AfAm (>60 ml/min/1.73 sqM) Est GFR (CKD-EPI)NonAf (>60 ml/min/1.73 sqM) Glucose (74-99) mg/dL Calcium (8.4-10.2) mg/dL Magnesium (1.6-2.3) mg/dL Total Bilirubin (0.2-1.3) mg/dL AST (17-59) U/L ALT (4-49) U/L Alkaline Phosphatase (38-126) U/L Troponin I (0.000-0.034) ng/mL Total Protein (6.3-8.2) g/dL Albumin (3.5-5.0) g/dL Amylase (30-110) U/L Disposition Clinical Impression: Jaw pain Disposition: HOME SELF-CARE Condition: Stable Instructions (If sedation given, give patient instructions): Atypical Facial Pain (ED) Additional Instructions: Please follow-up with your primary care doctor in 2-4 days. Return for any new or worsening symptoms Prescriptions: HYDROcodone/APAP 7.5-325MG [[place] 7.5-325] 1 tab PO Q4HR PRN 3 Days #18 tab PRN Reason: Pain Is patient prescribed a controlled substance at d/c from ED?: Yes When asked, does pt state using other controlled substances?: No If prescribed controlled substance>3 days was MAPS reviewed?: Prescribed <3 Days Referrals: Ag Pritchett MD [Primary Care Provider] - 1-2 days Time of Disposition: 01:31
[2021-08-15 01:47] VITALS: BP 130/80; PULSE 74
== END 2021-08-15 01:55 | disposition home or self-care (01) ==
LOC: EC 21:57
DX: R68.84 Jaw pain (principal); I10 Essential (primary) hypertension; I25.2 Old myocardial infarction; Z95.1 Presence of aortocoronary bypass graft; Z79.82 Long term (current) use of aspirin
CPT/HCPCS: 99283; 96374; 96376; 36415; 93005; 80053; 82150; 83735; 84484; 85025; 85610; 85730; J2270

== ENCOUNTER → 2023-02-15 | Outpatient (CLI) | payer MEDICARE, OTHER ==
--- NOTE | 2023-02-17 07:38 | MR ---
EXAMINATION TYPE: MR knee LT wo con DATE OF EXAM: 02/15/2023 COMPARISON: Outside left knee x-ray February 07, 2023 HISTORY: Left knee pain for 3 months. History of prior surgery. TECHNIQUE: Multiplanar, multisequence images of the knee is performed without IV contrast. FINDINGS: MEDIAL MENISCUS: Truncated appearance posterior horn with abnormal signal extends to inferior articul ar surface. LATERAL MENISCUS: Anterior and posterior horns are intact without tear. CRUCIATE LIGAMENTS: The anterior and posterior cruciate ligaments are intact and unremarkable. COLLATERAL LIGAMENTS: The medial collateral ligament and lateral collateral ligament complex are inta ct and unremarkable. EXTENSOR MECHANISM: Visualized quadriceps and patellar tendons are intact. Bony projection or spur fr om the anterior superior patella at distal quadriceps tendon insertion is seen. Mild adjacent edema a nteriorly is noted. EFFUSION: No significant suprapatellar joint effusion. POPLITEAL CYST: No popliteal/gonzales cyst. TRICOMPARTMENT SPACES: Moderate narrowing with mild spurring patellofemoral compartment. Mild to mode rate spurring and narrowing medial and lateral tibiofemoral compartments. CARTILAGE: Tricompartmental articular cartilage is fairly well preserved. BONE MARROW SIGNAL: No focal abnormal marrow signal is appreciated. OTHER: No additional significant abnormality is appreciated. IMPRESSION: 1. Likely prior surgery to the medial meniscus with recurrent likely full thickness tearing present i n the remnant posterior horn. 2. Mild to moderate tricompartment degenerative changes are present as detailed above. 3. Distal quadriceps tendinosis.
== END | disposition home or self-care (01) ==
LOC: RADMRIMAIN 08:14
PROVIDERS: ATTEND Orthopaedic Surgery
DX: M17.12 Unilateral primary osteoarthritis, left knee (principal); M67.864 Other specified disorders of tendon, left knee

== ENCOUNTER 2023-04-05 08:44 | Day surgery (SDC) | payer MEDICARE, OTHER ==
--- NOTE | 2023-04-04 14:14 | HP ---
HISTORY AND PHYSICAL DATE OF SURGERY: 04/05/2023. HISTORY OF PRESENT ILLNESS: Tony Yo is a 73-year-old patient, seen with progressive left knee pain. We discussed options regarding treatment. He elected to proceed with left knee arthroscopy. Consent regarding the procedure was obtained. PAST MEDICAL HISTORY: Hypertension and hyperlipidemia. PAST SURGICAL HISTORY: Knee arthroscopy, coronary artery bypass surgery, and lumbar spine surgery. DAILY MEDICATIONS: 1. Aspirin. 2. Lipitor. 3. Lisinopril. 4. Tylenol. ALLERGIES: None. SOCIAL HISTORY: He denies tobacco use. PHYSICAL EVALUATION OF THE LEFT KNEE: Range of motion is 0 to 135 degrees. Tenderness, medial joint line. Positive medial Sulaiman's. Ligaments are stable. Hip rotation is without pain. Distal neurovascular exam is intact. IMAGING STUDIES: Radiographs of the left knee revealed [id number] osteoarthritic changes. MRI left knee revealed medial meniscal tear and osteoarthritis. IMPRESSION: 1. Internal derangement of left knee with medial meniscal tear. 2. Hypertension. 3. Hyperlipidemia. 4. Cardiovascular disease. PLAN: Left knee arthroscopy with partial medial meniscectomy and debridement. MMODL / IJN: [id number] /
[2023-04-05] MEDS ORDERED: ONDANSETRON 4 MG/2 ML VIAL IVP ONE (08:55)
[2023-04-05] MEDS ORDERED: DEXAMETHASONE SOD PHOSPHATE 4 MG/ML 1 ML VIAL IV ONE (08:55)
[2023-04-05] MEDS ORDERED: LACTATED RINGERS 1,000 ML IV SCH (08:55)
[2023-04-05] MEDS ORDERED: LACTATED RINGERS 1,000 ML IV ONE (09:02)
[2023-04-05] MEDS ORDERED: KETOROLAC 15 MG/ML 1 ML VIAL ONE (09:57)
[2023-04-05] MEDS ORDERED: PROPOFOL 10 MG/ML 20 ML VIAL IV ONE (09:57)
[2023-04-05] MEDS ORDERED: fentaNYL (PF) 50 MCG/ML 2 ML AMP ONE (09:57)
[2023-04-05] MEDS ORDERED: MIDAZOLAM 2 MG/2 ML VIAL ONE (09:57)
[2023-04-05] MEDS ORDERED: LIDOCAINE 1% INJ 10MG/ML (20 ML MDV) ONE (09:57)
[2023-04-05] MEDS ORDERED: BUPIVACAINE (PF) 0.25% 30 ML VIAL SQ ONE ×2 (10:17)
--- NOTE | 2023-04-05 10:39 | P.OP ---
Date of Procedure: 04/05/23 Preoperative Diagnosis: Internal derangement left knee Postoperative Diagnosis: 1. Tear medial and lateral meniscus left knee 2. Reactive synovitis medial, lateral and suprapatellar compartments left knee Procedure(s) Performed: 1. Arthroscopic partial medial and lateral meniscectomy left knee 2. Arthroscopic partial synovectomy medial, lateral and suprapatellar compartments left knee Anesthesia: GETA, local Surgeon: Oleg Roper Estimated Blood Loss (ml): 5 Pathology: none sent Condition: stable Disposition: PACU Indications for Procedure: 73-year-old patient seen with progressive left knee pain. After having treatment options discussed, he elected to proceed with arthroscopy. Operative Findings: see description of procedure Description of Procedure: Patient was taken to the operative suite. Patient underwent a general anesthetic by the department of anesthesia. Patient was given preoperative antibiotics. The left lower extremity was placed in a well-padded arthroscopic leg cardona. The left leg was prepped and draped in the normal sterile orthopedic fashion. A lateral parapatellar and suprapatellar incision was made. Trochars were inserted. Arthroscopy was initiated. Suprapatellar pouch rev ealed diffuse thick reactive synovitis. The patellofemoral joint appeared to articulate congruently. There was grade 1 chondromalacia without significant tears. The scope was guided into the medial gutter. No loose body or plica were identified. The scope was then guided into the medial compartment. A medial parapatellar incision was made. Trocar inserted followed by probe. There was a radial tear involving the posterior horn medial meniscus. There were grade 1 chondromalacia changes of medial compartment without Morgan and osteochondral tears. There was thick reactive synovitis anteriorly. I performed a partial medial meniscectomy getting down to stable meniscal tissue. I performed a partial synovectomy decompressing the reactive synovitis. The residual meniscus was stable. There was good decompression of the synovitis. Scope and probe were then guided into the intercondylar notch. Cruciates were identified, probed and found to be stable. The scope and probe were then guided into lateral compartment. There was a radial tear involving the anterior horn and midbody lateral meniscus. There were grade 1 chondromalacia changes of the femoral condyle. There was thick reactive synovitis anteriorly. I performed a partial lateral meniscectomy getting down to stable meniscal tissue. I performed a partial synovectomy decompressing the reactive synovitis. The residual meniscus was stable. There was good decompression of the synovitis. The scope was in guided back into the suprapatellar compartment. I introduced a motorized shaver into the suprapatellar compartment. I performed a partial synovectomy. The shaver was removed. I took one more look around the entire knee, no residual debris. Instruments were now removed from the joint. The joint was infiltrated with .25% Marcaine. Steri-Strips were applied to the portal sites. Sterile dressings were applied. The patient was placed into a JUNAID hose. No tourniquet was utilized. The patient was awakened, transferred to a bed and taken to recovery stable satisfactory condition.
[2023-04-05] MEDS: HYDROmorphone 0.5 MG/0.5 ML SYRINGE IVP PRN ×2 (10:54→11:16)
[2023-04-05 11:01] VITALS: TEMP 96.9
[2023-04-05 12:38] VITALS: BP 128/71; PULSE 63; RESP 18
== END 2023-04-05 12:35 | disposition home or self-care (01) ==
LOC: OR 08:44
PROVIDERS: ATTEND Orthopaedic Surgery
DX: S83.282A Other tear of lateral meniscus, current injury, left knee, initial encounter (principal); M65.161 Other infective (teno)synovitis, right knee; I10 Essential (primary) hypertension; I25.10 Atherosclerotic heart disease of native coronary artery without angina pectoris; E78.5 Hyperlipidemia, unspecified; Z95.1 Presence of aortocoronary bypass graft; Z96.659 Presence of unspecified artificial knee joint; Z98.890 Other specified postprocedural states; Z79.82 Long term (current) use of aspirin; Z79.899 Other long term (current) drug therapy; X58.XXXA Exposure to other specified factors, initial encounter; Z95.5 Presence of coronary angioplasty implant and graft
CPT/HCPCS: 29880; J2250; J1100; J2405; J2001; J3010; J1885; J2704; J1170; J0665